=== PATIENT | male | born 1950 | race Caucasian/White ===

== ENCOUNTER 2020-07-31 19:28 | Emergency (ER) | payer MEDICARE, SELFPAY ==
[2020-07-31] VITALS (10 sets, daily range): BP systolic 104–117; BP diastolic 56–84; PULSE 60–86; RESP 12–22; TEMP 36.3; O2SAT 96–100
--- NOTE | ~2020-07-31 | XR_ITS ---
EXAMINATION: XR chest 2V DATE: 07/31/2020 20:14 INDICATION: Mid to left chest pain TECHNIQUE: PA and lateral views of the chest are obtained. COMPARISON: None available FINDINGS: There is a mild diffuse interstitial pattern. More focal airspace opacities are seen in the left lung base. There is no pleural effusion or pneumothorax. Cardiomegaly is noted. A dual-lead car diac pacemaker of the left chest wall ends with leads in expected locations. Median sternotomy wires and mediastinal surgical clips are seen, likely from prior coronary artery bypass grafting. Mild thoracic IMPRESSION: 1. Diffuse interstitial opacities with more focal airspace opacity seen in the left lung base which c ould reflect pulmonary edema and/or pneumonia and/or atelectasis. Reviewed, dictated and finalized at location A. [employer] IMPRESSION: 1. Diffuse interstitial opacities with more focal airspace opacity seen in the left lung base which could reflect pulmonary edema and/or pneumonia and/or atel ectasis.
--- NOTE | 2020-07-31 19:44 | ECG_ITS ---
Measurements Intervals [place] Rate: 66 P: -50 MT: 186 QRS: -76 QRSD: 138 T: 24 QT: 453 QTc: 477 Interpretive Statements ELECTRONIC ATRIAL PACEMAKER VENTRICULAR PREMATURE COMPLEX RIGHT BUNDLE BRANCH BLOCK LEFT ANTERIOR FASCICULAR BLOCK ABNORMAL ECG Electronically Signed On 07-31-2020 20:16:47 COOK FRY by Dayron Puentes D.O.
[2020-07-31] MEDS: ASPIRIN 81 MG CHEWABLE TABLET 324 MG PO (19:49)
[2020-07-31 19:55] LABS: Basophils Percent Auto 0.7 % (0.2-1.2); Eosinophils Absolute Auto 0.2 K/mm3 (0-0.3); Hematocrit 39.9 % (42.0-52.0); Hemoglobin 13.3 g/dL (14.0-18.0); Immature Granulocyte Absolute 0.01 K/mm3 (0.00-0.031); Immature Granulocyte Percent A 0.2 % (0-0.5); Immature Platelet Fraction Pct 7.4 % (0.9-11.2); Lymphocytes Absolute Auto 0.86 K/mm3 (0.9-3.2); Lymphocytes Percent Auto 21.4 % (18.3-44.2); Mean Corpuscular HGB Conc 33.3 g/dl (32-36); Mean Corpuscular Hemoglobin 31.7 pg (26-34); Mean Platelet Volume 11.8 fl (7.4-10.4); Monocytes Absolute Auto 0.3 K/mm3 (0.1-0.6); Monocytes Percent Auto 8.5 % (2.6-8.5); Neutrophils Absolute Auto 2.6 K/mm3 (1.3-6.7); Neutrophils Percent Auto 64.2 % (45.5-73.1); Platelet Count Result 61 k/mm3 (150-375); Red Cell Distribution Width 15.3 % (11.5-14.5)
[2020-07-31 20:02] LABS: INR 1.2; Prothrombin Time 15.8 Seconds (11.1-14.7)
[2020-07-31 20:03] LABS: Partial Thromboplastin Time 31.5 SECONDS (22.3-36.8)
[2020-07-31 20:06] LABS: Anion Gap 7 mmol/L (8-16); Blood Urea Nitrogen 19 mg/dL (9-20); Carbon Dioxide 25 mmol/L (22-30); Chloride 108 mmol/L (98-107); Estimated CRCL calculation 52 ml/min; Estimated Glomerular Filt Rate 60; Glucose 138 mg/dL (75-110); Potassium 3.7 mmol/L (3.4-5.0); Sodium 140 mmol/L (137-145)
--- NOTE | 2020-07-31 20:10 | ED.CHESTPAIN ---
HPI - Chest Pain General Chief Complaint: Chest Pain Stated Complaint: chest pain Time Seen by Provider: 07/31/20 19:43 History of Present Illness HPI narrative: Patient is a 70-year-old male who presents to the ER with chest pain. Began 30 minutes prior to arrival. He was bringing in a trash can when he developed sharp heavy chest pain left center of the chest that radiated down his left arm to his elbow. Pain persists. Originally 03/06 and now 6/10. No sweats or nausea or vomiting or shortness of breath. Patient has known coronary disease. His cloth coverer is Dr. Cordoba with [facility]. Patient is scheduled to get a cardiac catheterization next week due to increased frequency of chest pain. Patient has had open heart surgery as well as cardiac stenting. Related Data Home Medications Medication Instructions Recorded Confirmed aspirin [Adult Aspirin] 81 mg PO DAILY 07/31/20 atorvastatin 80 mg PO HS 07/31/20 carvedilol 25 mg PO BID 07/31/20 enalapril maleate 5 mg PO DAILY 07/31/20 famotidine 40 mg PO DAILY 07/31/20 furosemide 20 mg PO DAILY 07/31/20 pantoprazole 40 mg PO QAM 07/31/20 spironolactone 25 mg PO DAILY 07/31/20 Allergies Allergy/AdvReac Type Severity Reaction Status Date / Time No Known Allergies Allergy Verified 07/31/20 19:37 Review of Systems Review of Systems: All systems reviewed & are unremarkable except as noted in HPI and below Constitutional: Constitutional: Denies chills, Denies fever(s) and Denies weakness ENT: Denies nasal congestion Cardiovascular: Cardiovascular: Reports chest pain, Denies rapid heart rate and Reports radiating jaw, neck or arm pain Respiratory: Respiratory: Denies cough and Denies dyspnea Gastrointestinal: Gastrointestinal: Denies abdominal pain, Denies nausea and Denies vomiting PMFSH Past Medical History Medical History (Updated 07/31/20 @ 22:43 by Duong Juares MD) Coronary artery disease Hyperlipidemia Hypertension Surgical History Surgical History (Updated 07/31/20 @ 22:42 by Duong Juares MD) History of coronary artery bypass graft History of percutaneous coronary intervention History of permanent cardiac pacemaker placement Exam Narrative: Exam Narrative: GENERAL: Well-appearing, well-nourished, and in no acute distress. HEAD: Normocephalic, atraumatic. CHEST: Clear to auscultation. No respiratory distress. HEART: Regular rate and rhythm. Normal peripheral pulses. ABDOMEN: Soft, nontender, nondistended. EXTREMITIES: Normal range of motion. No edema. SKIN: Warm, dry, no rash. NEURO: Alert and oriented x3. PSYCH: Normal mood and affect. Course Course Emergency Course: Discussed case with on-call nurse practitioner at [facility]. They have gotten the patient accepted to [facility] under the care of Dr. Sharpe the patient's cloth coverer. Awaiting room number and transport. Vital Signs Vital signs: Vital Signs Temperature 97.3 F L 07/31/20 19:34 Pulse Rate 79 07/31/20 19:34 Respiratory Rate 22 H 07/31/20 19:34 Blood Pressure 117/75 07/31/20 19:34 Pulse Oximetry 99 07/31/20 19:34 Temperature 97.3 F L 07/31/20 19:34 Pulse Rate 72 07/31/20 23:01 Respiratory Rate 22 H 07/31/20 23:01 Blood Pressure 109/63 07/31/20 23:01 Pulse Oximetry 97 07/31/20 23:01 MDM - Chest Pain Lab Data Result diagrams: 07/31/20 19:47 07/31/20 19:47 Labs: Lab Results 07/31/20 07/31/20 07/31/20 Range/Units 19:47 19:47 19:47 WBC 4.0 L (4.5-10.0) K/mm3 RBC 4.20 L (4.6-6.20) M/mm3 Hgb 13.3 L (14.0-18.0) g/dL Hct 39.9 L (42.0-52.0) % MCV 95.0 (80-100) fl MCH 31.7 (26-34) pg MCHC 33.3 (32-36) g/dl RDW 15.3 H (11.5-14.5) % Plt Count 61 L (150-375) k/mm3 MPV 11.8 H (7.4-10.4) fl Immature Gran % (Auto) 0.2 (0-0.5) % Neut % (Auto) 64.2 (45.5-73.1) % Lymph % (Auto) 21.4 (
[2020-07-31 20:18] LABS: Troponin I < 0.012 ng/mL (0.000-0.034)
[2020-07-31 21:08] LABS: NT Pro B Type Natriuretic Pept 855 PG/ML (5-100)
[2020-07-31 23:16] LABS: Troponin I < 0.012 ng/mL (0.000-0.034)
== END 2020-07-31 23:20 | disposition short-term general hospital (02) ==
PROVIDERS: Emergency Provider Emergency Medicine
DX: R07.9 Chest pain, unspecified (principal); I25.10 Atherosclerotic heart disease of native coronary artery without angina pectoris; E78.5 Hyperlipidemia, unspecified; I10 Essential (primary) hypertension; Z79.82 Long term (current) use of aspirin; Z95.1 Presence of aortocoronary bypass graft; Z95.0 Presence of cardiac pacemaker; Z95.5 Presence of coronary angioplasty implant and graft; I49.3 Ventricular premature depolarization; I45.2 Bifascicular block
CPT/HCPCS: 36415; 71046; 80048; 83880; 84484; 85025; 85055; 85610; 85730; 93005; 99285; A9270